=== PATIENT | male | born 1980 | race Caucasian/White ===

== ENCOUNTER 2016-12-28 14:56 | Emergency (ER) | payer SELFPAY ==
[~2016-12-28] VITALS: Ht 160 cm; Wt 94.1 kg
[2016-12-28 15:03] VITALS: BP 134/85
== END 2016-12-28 17:07 | disposition home or self-care (01) ==
LOC: ED 14:56
DX: S61.211A Laceration without foreign body of left index finger without damage to nail, initial encounter (principal); W45.8XXA Other foreign body or object entering through skin, initial encounter; Y93.89 Activity, other specified; Y92.009 Unspecified place in unspecified non-institutional (private) residence as the place of occurrence of the external cause; Y99.8 Other external cause status
CPT/HCPCS: 90715; J2001